=== PATIENT | male | born 1965 | race Caucasian/White ===

== ENCOUNTER 2020-02-23 18:06 | Emergency (ER) | payer OTHER, MEDICAID ==
[~2020-02-23] VITALS: Ht 182.9 cm; Wt 90.7 kg
[2020-02-23 18:06] VITALS: BP_SYST 137
--- NOTE | 2020-02-23 18:06 | NUR ---
BROUGHT IN BY [facility] AND PLACED IN BED #1, TRIAGED AND REPORT GIVEN TO VERNA
--- NOTE | 2020-02-23 18:15 | NUR ---
Dr Alfaro at bedside examining patient
--- NOTE | 2020-02-23 18:15 | NUR ---
MD TO BEDSIDE TO ASSESS.
--- NOTE | 2020-02-23 18:25 | NUR ---
RECEIVED AND IN ROOM, PT CALM, ALERT, RESP UNLABORED, SKIN WARM AND DRY. CONFUSED. DIFFICULTY FOLLOWING COMMANDS, FORGETFULL. DENIES PAIN. HE IS HERE FOR MEDICAL CLEARANCE AND THEN IS TO BE TRANSFERED TO [facility] HE WAS SENT HERE AFTER BECOMING AGITATED AND AGRESSIVE WITH STAFF.
--- NOTE | 2020-02-23 18:30 | NUR ---
LABS DRAWN, UA SENT. PT RESTING EASY, NO DISTRESS
[2020-02-23 18:57] LABS: BASOPHILS % (AUTO) 0.7 % (0.0-2.0); EOSINOPHILS # (AUTO) 0.1 K/uL (0.0-0.4); EOSINOPHILS % (AUTO) 1.5 % (0.0-4.0); HEMATOCRIT 37.7 % (36-54); LYMPHOCYTES # (AUTO) 1.9 K/uL (1.0-5.5); LYMPHOCYTES % (AUTO) 37.9 % (20.5-51.5); MEAN CORPUSCULAR HEMOGLOBIN 33 pg (27-31); MEAN CORPUSCULAR HGB CONC 35 % (32-36); MEAN CORPUSCULAR VOLUME 97 fL (79.0-98.0); MONOCYTES # (AUTO) 0.4 K/uL (0.0-1.0); NEUTROPHILS # (AUTO) 2.7 K/uL (1.8-7.7); NEUTROPHILS % (AUTO) 52.9 % (40.0-70.0); PLATELET COUNT (AUTO) 164 K/uL (130-430); RED BLOOD CELL COUNT(AUTO) 3.91 MIL/uL (4.2-6.2); RED CELL DISTRIBUTION WIDTH 12.9 % (9.0-15.0); WHITE BLOOD COUNT (AUTO) 5.1 K/uL (4.8-10.8)
[2020-02-23 19:05] LABS: ANION GAP 8 (5-15); BILIRUBIN,URINE NEGATIVE (NEGATIVE); BLOOD, URINE NEGATIVE (NEGATIVE); CALCIUM 7.9 mg/dL (8.4-11.0); CHLORIDE 102 mmol/L (98-107); CLARITY/URINE CLEAR (CLEAR); COLOR,URINE YELLOW (YELLOW); CREATININE 1.06 mg/dL (0.55-1.30); GLUCOSE 138 mg/dL (70-99); GLUCOSE,URINE NEGATIVE (NEGATIVE); KETONES,URINE NEGATIVE (NEGATIVE); LEUKOCYTE ESTERASE ,URINE NEGATIVE (NEGATIVE); NITRITE, URINE NEGATIVE (NEGATIVE); PH,URINE 6.5 (5.0-8.0); POTASSIUM 3.8 mmol/L (3.5-5.1); PROTEIN URINE NEGATIVE (NEGATIVE); SODIUM SERUM 141 mmol/L (136-145); UREA NITROGEN, BLOOD 17 mg/dL (8-21); UROBILINOGEN,URINE 0.2 (0.2-1.0)
[2020-02-23 19:10] LABS: GFR AFRICAN AMERICAN 93 mL/min (>90)
[2020-02-23 19:12] LABS: BARBITURATE, URINE POSITIVE (NEG <=200); BENZODIAZEPINE, URINE POSITIVE (NEG <=150); CANNABINOID, URINE NEGATIVE (NEG <=50); COCAINE, URINE NEGATIVE (NEG <=150); METHAMPHETAMINES SCREEN,URINE NEGATIVE (NEG <=500); OPIATE, URINE NEGATIVE (NEG <=100); PHENCYCLIDINE SCREEN,URINE NEGATIVE (NEG <=25); UR TRICYCLIC ANTIDEPRESSANTS POSITIVE (NEG <=300); URINE AMPHETAMINE NEGATIVE (NEG <=500); URINE METHADONE NEGATIVE (NEG <=200); URINE OXYCODONE SCREEN NEGATIVE (NEG <=100); URINE PROPOXYPHENE SCREEN NEGATIVE (NEG <=300)
--- NOTE | 2020-02-23 19:15 | NUR ---
MEAL PROVIDED,TOLERATED WELL, NO DIFFICULTY OBSERVED, RESP UNLABORED GOOD APPETITE, TOLERATING FLUIDS. REDIRECTABLE. AMBULATED SEVERAL TIMES TO BATHROOM W/OUT DIFFICULTY
[2020-02-23 19:19] LABS: ALANINE AMINOTRANSFERASE 18 U/L (12-78); ALBUMIN 3.5 g/dL (3.4-4.8); ASPARTATE AMINOTRANSFERASE 11 U/L (10-37); TOTAL BILIRUBIN 0.5 mg/dL (0.0-1.0)
[2020-02-23 19:20] LABS: ACETAMINOPHEN < 1 ug/mL (1-30)
[2020-02-23 20:19] VITALS: BP_SYST 133
--- NOTE | 2020-02-23 20:24 | NUR ---
REPORT GIVEN TO STAFF AT [facility]. THEY HAVE BEEN AWARE OF HIS ARRIVAL AND MEDICAL CLEARANCE. EMT TO RECEIVE CARE
--- NOTE | 2020-02-23 20:25 | NUR ---
Patient to be transferred to [facility]. Is being transferred due TO PSYCH. Receiving facility has accepting physician and available space. ER physician has signed transfer form. Patient or responsible democrat has agreed to transfer and signed form. Patient belongings inventoried and will be sent with patient. Copy of nursing notes, lab reports, EKG, Physicians Orders and X-rays to be sent with patient. Report called to JEFFERY RAYGOZA at receiving facility. . ambulance service has been called for transfer.
[2020-02-23 20:36] LABS: CHOLESTEROL 131 mg/dL (<200); HDL CHOLESTEROL 32 mg/dL (>45); LDL CHOLESTEROL 79 mg/dL (<100); TRIGLYCERIDES 125 mg/dL (30-150)
== END 2020-02-23 20:19 ==
LOC: SED 18:06
DX: R45.6 Violent behavior (principal); R45.850 Homicidal ideations; R45.851 Suicidal ideations; F03.90 Unspecified dementia, unspecified severity, without behavioral disturbance, psychotic disturbance, mood disturbance, and anxiety; F20.9 Schizophrenia, unspecified; I10 Essential (primary) hypertension; Z86.59 Personal history of other mental and behavioral disorders; Z86.19 Personal history of other infectious and parasitic diseases; Z88.1 Allergy status to other antibiotic agents
CPT/HCPCS: 36415; 80053; 80061; 80307; 81003; 82140; 83036; 85025; 87081; 99285; G0480; G0481

== ENCOUNTER 2020-03-15 16:05 | Emergency (ER) | payer OTHER, MEDICAID ==
[~2020-03-15] VITALS: Ht 182.9 cm; Wt 99.8 kg
[2020-03-15 16:05] VITALS: BP_SYST 109
--- NOTE | 2020-03-15 16:05 | NUR ---
Patient is awake, alert, and oriented x1. Patient was sent via BLS from [facility] for evaluation of productive cough x2 days. Patient does not appear in any distress at this time.
--- NOTE | 2020-03-15 16:05 | NUR ---
Patient to ER bed 5 to gown for evaluation. Side rails up. Report given to JEFFERY Jessica.
--- NOTE | 2020-03-15 16:07 | NUR ---
ER Dr. Alfaro at bedside examining patient.
--- NOTE | 2020-03-15 16:10 | NUR ---
Patient is yelling for food. Tray given.
--- NOTE | 2020-03-15 16:15 | NUR ---
Patient finished food, threw some on the floor.
[2020-03-15] MEDS ORDERED: DIVA500T2 PO (16:28)
[2020-03-15] MEDS ORDERED: RISP1TAB27 PO (16:28)
[2020-03-15] MEDS ORDERED: TRAZ50TA54 PO (16:28)
[2020-03-15] MEDS ORDERED: QUET50TA79 PO (16:28)
[2020-03-15] MEDS ORDERED: ESCI10TA54 PO (16:28)
[2020-03-15] MEDS ORDERED: EMTR1TAB9 PO (16:28)
--- NOTE | 2020-03-15 16:28 | NUR ---
Medication reconciliation completed with information provided by Alfonso Leavitt. Any prior medication reconciliation on file was reviewed and corrected.
--- NOTE | 2020-03-15 16:30 | NUR ---
Patient is continuing to yell for food and nurse.
--- NOTE | 2020-03-15 16:50 | NUR ---
Patient is still yelling and getting out of gurney.
[2020-03-15] MEDS: LORazepam 2 MG/ML VIAL IM ONE (16:51)
[2020-03-15] MEDS: HALOPERIDOL LACTATE 5 MG/ML VIAL IM ONE (16:52)
[2020-03-15 17:09] LABS: BASOPHILS # (AUTO) 0.1 K/uL (0.0-0.2); BASOPHILS % (AUTO) 0.9 % (0.0-2.0); EOSINOPHILS # (AUTO) 0.2 K/uL (0.0-0.4); EOSINOPHILS % (AUTO) 2.7 % (0.0-4.0); HEMATOCRIT 39.4 % (36-54); HEMOGLOBIN 13.6 g/dL (14.0-18.0); LYMPHOCYTES # (AUTO) 2.2 K/uL (1.0-5.5); LYMPHOCYTES % (AUTO) 38.2 % (20.5-51.5); MEAN CORPUSCULAR HEMOGLOBIN 33 pg (27-31); MEAN CORPUSCULAR HGB CONC 34 % (32-36); MEAN CORPUSCULAR VOLUME 96 fL (79.0-98.0); MONOCYTES # (AUTO) 0.3 K/uL (0.0-1.0); MONOCYTES % (AUTO) 5.9 % (1.7-9.3); NEUTROPHILS % (AUTO) 52.3 % (40.0-70.0); PLATELET COUNT (AUTO) 178 K/uL (130-430); RED CELL DISTRIBUTION WIDTH 13.3 % (9.0-15.0); WHITE BLOOD COUNT (AUTO) 5.7 K/uL (4.8-10.8)
[2020-03-15] MEDS ORDERED: KETAMINE 30 MG/3 ML SYRINGE IM ONE (17:15)
[2020-03-15 17:16] LABS: CALCIUM 8.5 mg/dL (8.4-11.0); CREATININE 1.16 mg/dL (0.55-1.30); POTASSIUM 3.8 mmol/L (3.5-5.1)
[2020-03-15] MEDS: KETAMINE HCL 500 MG/10 ML VIAL IM ONE (17:17)
[2020-03-15 17:22] LABS: ALBUMIN 3.7 g/dL (3.4-4.8); TOTAL BILIRUBIN 0.6 mg/dL (0.0-1.0)
[2020-03-15] MEDS: NACL 0.9% 1,000 ML IV ONE (17:52)
[2020-03-15 18:02] LABS: LACTATE DEHYDROGENASE 165 U/L (85-227)
[2020-03-15 18:09] LABS: C-REACTIVE PROTEIN QUANT < 0.2 mg/dL (0-0.5)
[2020-03-15] MEDS: DIPHENHYDRAMINE INJ 50 MG/ML VIAL IM ONE (18:25)
[2020-03-15] MEDS ORDERED: DIPHENHYDRAMINE INJ 50 MG/ML VIAL ONE (18:33)
--- NOTE | 2020-03-15 19:19 | NUR ---
Patient to be transferred back to [facility]. Is being transferred due to higher level of care. Receiving facility has accepting physician and available space. ER physician has signed transfer form. Patient or responsible democrat has agreed to transfer and signed form. Patient belongings inventoried and will be sent with patient. Copy of nursing notes, lab reports, EKG, Physicians Orders and X-rays to be sent with patient. Report called to Shama at receiving facility. Receiving physician is Taran.
--- NOTE | 2020-03-15 19:20 | NUR ---
Report given to JEFFERY Duncan for continuation of care.
[2020-03-15 19:35] VITALS: BP_SYST 142
--- NOTE | 2020-03-15 19:35 | NUR ---
Patient given written and verbal discharge instructions and verbalizes understanding. ER MD discussed with patient the results and treatment provided. Patient in stable condition. ID arm band removed. IV catheter removed intact and dressing applied, no active bleeding. No Rx given. Patient educated on pain management and to follow up with PMD. Pain Scale 0/10. Opportunity for questions provided and answered.
[2020-03-17 08:08] LABS: CHOLESTEROL 139 mg/dL (<200); HDL CHOLESTEROL 27 mg/dL (>45); LDL CHOLESTEROL 62 mg/dL (<100); TRIGLYCERIDES 304 mg/dL (30-150)
== END 2020-03-15 19:35 ==
LOC: SED 16:05
DX: R05 Cough (principal); I10 Essential (primary) hypertension; F03.90 Unspecified dementia, unspecified severity, without behavioral disturbance, psychotic disturbance, mood disturbance, and anxiety; F20.9 Schizophrenia, unspecified; Z86.19 Personal history of other infectious and parasitic diseases; Z79.899 Other long term (current) drug therapy
CPT/HCPCS: 36415; 71045; 80053; 82728; 83605; 83615; 85025; 85379; 86140; 96372; 96374; 96375; 99285; J1200; J1630; J2060; J7030; 80061; 83036